=== PATIENT | female | born 1995 | race Caucasian/White ===

== ENCOUNTER 2024-12-09 10:51 | Outpatient (AMB) | payer OTHER, SELFPAY ==
--- NOTE | 2024-12-09 10:56 | MHC.OFFWIV ---
Intake Vital Signs 12/09/24 11:01 Height 5 ft Weight 228 lb BMI 44.5 BP 120/70 Blood Pressure Location Lt brachial Position Sitting Pulse 120 H Pulse Source Pulse Oximeter Temp 98.9 F Temp Source Oral Pulse Oximetry (%) 96 Intake Visit Reasons: [employer] flu symptoms Patient Tobacco Use Status: Never used Tobacco Allergies Seasonal Allergies Allergy (Mild, Verified 12/09/24 11:03) Sneezing Do you need a note to return to daycare/school/sports/work: Yes HPI HPI Comments History of Present Illness Details 29 y/o female patient who presents to the walk in clinic with c/o URI symptoms since yesterday. Reports coughing, chest/nasal congestion, body aches, fevers and headaches. Recent exposure to Flu from a coworker. [facility] Medical History (Updated 12/09/24 @ 11:12 by Amy Austin NP) Acute respiratory disease Social History Patient Tobacco Use Status: Never used Tobacco Review of Systems Const All systems reviewed & are unremarkable except as noted in HPI and below Physical Exam Vital Signs: Last Vital Signs Temp 98.9 F 12/09/24 11:01 Pulse 120 H 12/09/24 11:01 BP 120/70 12/09/24 11:01 Pulse Ox 96 12/09/24 11:01 BMI result Body Mass Index 44.5 Const General: cooperative and no acute distress Nutritional Appearance: obese morbidly obese Orientation/consciousness: patient oriented x3 HEENT Head: Yes normocephalic Ears: external ears normal and TM abnormal with fluid behind the TM bilateral General nose exam: Normal external nose present and Nasal discharge present Face and sinus: Yes normal facial exam and Yes sinus tenderness Mouth: moist mucous membranes Throat: Yes uvula midline and Yes postnasal drainage Resp Effort & Inspection: normal respiratory effort and able to speak in complete sentences Auscultation: clear to auscultation bilaterally, no crackles, no rales, no rhonchi and no wheezes Cardio Heart sounds: S1 normal heart sound present and S2 normal heart sound present Neuro General: patient oriented x3 Assessment & Plan Assessment & Plan (1) Acute respiratory disease: Code(s): J06.9 - Acute upper respiratory infection, unspecified Plan: Ordered SARs OTC cough/flu remedies Ordered Tamiflu (Hold for SARs results) Rest and hydrate with warm fluids. Acetaminophen for pain relief. Orders: Orders SARS-CoV2/FLU/RSV Today J06.9 - Acute upper respiratory infection, unspecified Medications: New benzonatate 200 mg (2 x 100 mg) PO TID 90 caps 0RF cough J06.9 - Acute upper respiratory infection, unspecified oseltamivir (Tamiflu) 75 mg PO BID 5 days 10 caps 0RF J06.9 - Acute upper respiratory infection, unspecified Coding Level of Care Code New Pt Level 4 (79545) Diagnoses Acute respiratory disease J06.9 Time Spent (min) 20
[2024-12-09 11:01] VITALS: BP 120/70; PULSE 120; TEMP 37.2; O2SAT 96; BMI 44.5
--- OUTSIDE RECORDS SUMMARY | 2024-12-09 13:08 | XMS_ITS ---
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 SECA done. Previous weight was 230. Today the patient weight is 230. She has no complaints MEDICATIONS Medication SIG (Take, Route, Frequency, Duration) Notes Start Date End Date Status Semaglutide(0.25 or 0.5MG/DOS) 2 MG/3ML as directed Subcutaneous Active VITAL SIGNS Blood pressure systolic 140 mm Hg 12/02/19 25 Blood pressure diastolic 68 mm Hg 025 Heart Rate 55 /min 12/02/2024 Height 60 in 12/02/2024 Weight 230 lbs 12/02/2024 BMI 44.91 kg/m2 12/02/2024 Oximetry 99 % 12/02/2024 Encounters Encounter Location Date Provider Diagnosis [address] [address] 12/02/2024 BRANNON TELLEZ Morbid obesity E66.0 1 ; BMI 45.0-49.9, adult Z68.42 and Nutritional counseling Z71.3 ASSESSMENTS Encounter Date Diagnosis Assessment Notes Treatment Notes Treatment Clinical Notes Section Notes 12/02/2024 Morbid obesity (ICD-10 - E66.01) Lila is a 29-year-old female with PMH of asthma, seasonal allergies that presents for weight management follow-up. Reviewed [facility] holistic and medical approach to weight loss with emphasis on lifestyle modification. 12/02/2024: Weight: 230, BMI: 44.9. SECA reviewed -unchanged from last visit. Due to financial constrictions, patient would like to continue compounded semaglutide 0.5 mg SC weekly. She is hopeful that with insurance change at work, Joyce may be covered in the future. In the interim she is encouraged to continue to make health-conscious diet choices and prioritize protein intake. Discussed the importance of establishing regular physical activity routine. First goal is to walk 30 minutes 3 times weekly. 11/03/2024: Weight: 230, BMI: 44.9. Patient had 8 pounds, congratulated on progress. SECA reviewed, reveals 6 pounds of fat loss and maintenance of muscle mass. Once settled into her new home the patient is encouraged to implement regular walking/exercise routine. Discussed the importance of practicing portion control and being conscientious of calorie intake. Patient encouraged to increase water intake and consider trying sugar/calorie free flavored beverage as alternative to juice. Plan to continue compounded semaglutide at 0.5 SC weekly and follow up in 1 month. 09/24/2024: Weight: 238.5, BMI 46.6. SECA reviewed, reveals 2 pounds of fat gain with maintenance of muscle mass. Patient encouraged to continue participating in HIT workouts 3 times weekly. Discussed the importance of portion control and continued healthy eating habits. Reviewed the importance of adequate nutrition in the setting of GLP-1 induced appetite suppression. Patient is reminded that under eating can be just as harmful as overeating and is encouraged to keep a food diary x 1 week to better evaluate current diet. Plan to continue semaglutide 0.25 mg today with plan to increase to 0.5 mg dose at next visit. 08/25/2024: Weight: 236, BMI: 46. SECA reviewed, reveals 2 pounds of fat loss with 2 pounds of muscle gain. Patient provided reassurance, although number on scale has not changed, composition has improved. The patient is encouraged to continue prioritizing protein intake, physical activity, and water intake. Plan to start compounded semaglutide in office today, 0.25 mg administered. Consider resubmitting to insurance [place] to [place] [id number]. Labs drawn 08/24/2024 reveal elevated TG at 201 and LDL at 111 patient is educated that lifestyle changes including increasing physical activity and dietary changes can aid in decreasing cholesterol levels. Recommending a diet rich in fruits, vegetables, fiber, and healthy fats such as those found in fish and nuts. Limit sugar, processed foods, fried foods, alcohol, red meat, and unhealthy fats such as trans fats and saturated fat. Consider fish oil supplement. CMP reveals isolated elevated ALT at 91. Patient denies regular use of hepatotoxic agents such as Tylenol or alcohol. Patient encouraged to follow-up with PCP for repeat labs. 07/07/2024: Weight: 235, BMI: 45.89. Reviewed SECA/goals for implementing sustainable lifestyle changes. Patient is encouraged to increase physical activity, goal 8-10k steps/day. Also discussed the importance of strength training with proper safety/body mechanics for maintenance of muscle mass/bone health. Patient encouraged to drink 60-80oz water/day. Reviewed nutrition, recommending food diary x 1 week to ensure adequate caloric/protein intake. Goal of 100g protein/day. Reviewed risks, benefits, and side effects of weight management medications including phentermine, Topamax, Contrave, metformin, and GLP-1 agonist.Patient interested in GLP-1 agonist Zepbound. Rx for Zepbound 2.5 mg SC weekly sent to pharmacy. Denies personal/family history of medullary thyroid cancer/M EN syndrome. Reviewed expectations for PA process/insurance coverage. Patient would like to try implementing lifestyle changes in addition to the MICC injection with plan to follow-up in 1 month. All questions answered to the patient's satisfaction. Patient demonstrates understanding of diagnosis and treatments discussed. Follow-up in 4-weeks, sooner should any questions/concerns arise. Case discussed with collaborating physician Beata De León who has reviewed the assessment/plan. Chart, medications, labs, and vital signs reviewed. Dictation completed with the use of [employer] voice recognition software, prone to medical misidentifications and grammatical errors. All errors are unintentional. Although the practitioner does try to identify and correct errors, some may be present. Please do not hesitate to contact the practitioner for clarification. Total time spent was 30 minutes with >50% on coordination of care and patient education. 12/02/2024 BMI 45.0-49.9, adult (ICD-10 - Z68.42) Lila is a 29-year-old female with PMH of asthma, seasonal allergies that presents for weight management follow-up. Reviewed [facility] holistic and medical approach to weight loss with emphasis on lifestyle modification. 12/02/2024: Weight: 230, BMI: 44.9. SECA reviewed -unchanged from last visit. Due to financial constrictions, patient would like to continue compounded semaglutide 0.5 mg SC weekly. She is hopeful that with insurance change at work, Joyce may be covered in the future. In the interim she is encouraged to continue to make health-conscious diet choices and prioritize protein intake. Discussed the importance of establishing regular physical activity routine. First goal is to walk 30 minutes 3 times weekly. 11/03/2024: Weight: 230, BMI: 44.9. Patient had 8 pounds, congratulated on progress. SECA reviewed, reveals 6 pounds of fat loss and maintenance of muscle mass. Once settled into her new home the patient is encouraged to implement regular walking/exercise routine. Discussed the importance of practicing portion control and being conscientious of calorie intake. Patient encouraged to increase water intake and consider trying sugar/calorie free flavored beverage as alternative to juice. Plan to continue compounded semaglutide at 0.5 SC weekly and follow up in 1 month. 09/24/2024: Weight: 238.5, BMI 46.6. SECA reviewed, reveals 2 pounds of fat gain with maintenance of muscle mass. Patient encouraged to continue participating in HIT workouts 3 times weekly. Discussed the importance of portion control and continued healthy eating habits. Reviewed the importance of adequate nutrition in the setting of GLP-1 induced appetite suppression. Patient is reminded that under eating can be just as harmful as overeating and is encouraged to keep a food diary x 1 week to better evaluate current diet. Plan to continue semaglutide 0.25 mg today with plan to increase to 0.5 mg dose at next visit. 08/25/2024: Weight: 236, BMI: 46. SECA reviewed, reveals 2 pounds of fat loss with 2 pounds of muscle gain. Patient provided reassurance, although number on scale has not changed, composition has improved. The patient is encouraged to continue prioritizing protein intake, physical activity, and water intake. Plan to start compounded semaglutide in office today, 0.25 mg administered. Consider resubmitting to insurance [place] to [place] [id number]. Labs drawn 08/24/2024 reveal elevated TG at 201 and LDL at 111 patient is educated that lifestyle changes including increasing physical activity and dietary changes can aid in decreasing cholesterol levels. Recommending a diet rich in fruits, vegetables, fiber, and healthy fats such as those found in fish and nuts. Limit sugar, processed foods, fried foods, alcohol, red meat, and unhealthy fats such as trans fats and saturated fat. Consider fish oil supplement. CMP reveals isolated elevated ALT at 91. Patient denies regular use of hepatotoxic agents such as Tylenol or alcohol. Patient encouraged to follow-up with PCP for repeat labs. 07/07/2024: Weight: 235, BMI: 45.89. Reviewed SECA/goals for implementing sustainable lifestyle changes. Patient is encouraged to increase physical activity, goal 8-10k steps/day. Also discussed the importance of strength training with proper safety/body mechanics for maintenance of muscle mass/bone health. Patient encouraged to drink 60-80oz water/day. Reviewed nutrition, recommending food diary x 1 week to ensure adequate caloric/protein intake. Goal of 100g protein/day. Reviewed risks, benefits, and side effects of weight management medications including phentermine, Topamax, Contrave, metformin, and GLP-1 agonist.Patient interested in GLP-1 agonist Zepbound. Rx for Zepbound 2.5 mg SC weekly sent to pharmacy. Denies personal/family history of medullary thyroid cancer/M EN syndrome. Reviewed expectations for PA process/insurance coverage. Patient would like to try implementing lifestyle changes in addition to the MICC injection with plan to follow-up in 1 month. All questions answered to the patient's satisfaction. Patient demonstrates understanding of diagnosis and treatments discussed. Follow-up in 4-weeks, sooner should any questions/concerns arise. Case discussed with collaborating physician Beata De León who has reviewed the assessment/plan. Chart, medications, labs, and vital signs reviewed. Dictation completed with the use of [employer] voice recognition software, prone to medical misidentifications and grammatical errors. All errors are unintentional. Although the practitioner does try to identify and correct errors, some may be present. Please do not hesitate to contact the practitioner for clarification. Total time spent was 30 minutes with >50% on coordination of care and patient education. 12/02/2024 Nutritional counseling (ICD-10 - Z71.3) Lila is a 29-year-old female with PMH of asthma, seasonal allergies that presents for weight management follow-up. Reviewed [facility] holistic and medical approach to weight loss with emphasis on lifestyle modification. 12/02/2024: Weight: 230, BMI: 44.9. SECA reviewed -unchanged from last visit. Due to financial constrictions, patient would like to continue compounded semaglutide 0.5 mg SC weekly. She is hopeful that with insurance change at work, Joyce may be covered in the future. In the interim she is encouraged to continue to make health-conscious diet choices and prioritize protein intake. Discussed the importance of establishing regular physical activity routine. First goal is to walk 30 minutes 3 times weekly. 11/03/2024: Weight: 230, BMI: 44.9. Patient had 8 pounds, congratulated on progress. SECA reviewed, reveals 6 pounds of fat loss and maintenance of muscle mass. Once settled into her new home the patient is encouraged to implement regular walking/exercise routine. Discussed the importance of practicing portion control and being conscientious of calorie intake. Patient encouraged to increase water intake and consider trying sugar/calorie free flavored beverage as alternative to juice. Plan to continue compounded semaglutide at 0.5 SC weekly and follow up in 1 month. 09/24/2024: Weight: 238.5, BMI 46.6. SECA reviewed, reveals 2 pounds of fat gain with maintenance of muscle mass. Patient encouraged to continue participating in HIT workouts 3 times weekly. Discussed the importance of portion control and continued healthy eating habits. Reviewed the importance of adequate nutrition in the setting of GLP-1 induced appetite suppression. Patient is reminded that under eating can be just as harmful as overeating and is encouraged to keep a food diary x 1 week to better evaluate current diet. Plan to continue semaglutide 0.25 mg today with plan to increase to 0.5 mg dose at next visit. 08/25/2024: Weight: 236, BMI: 46. SECA reviewed, reveals 2 pounds of fat loss with 2 pounds of muscle gain. Patient provided reassurance, although number on scale has not changed, composition has improved. The patient is encouraged to continue prioritizing protein intake, physical activity, and water intake. Plan to start compounded semaglutide in office today, 0.25 mg administered. Consider resubmitting to insurance upon change to health 11. Labs drawn 08/24/2024 reveal elevated TG at 201 and LDL at 111 patient is educated that lifestyle changes including increasing physical activity and dietary changes can aid in decreasing cholesterol levels. Recommending a diet rich in fruits, vegetables, fiber, and healthy fats such as those found in fish and nuts. Limit sugar, processed foods, fried foods, alcohol, red meat, and unhealthy fats such as trans fats and saturated fat. Consider fish oil supplement. CMP reveals isolated elevated ALT at 91. Patient denies regular use of hepatotoxic agents such as Tylenol or alcohol. Patient encouraged to follow-up with PCP for repeat labs. 07/07/2024: Weight: 235, BMI: 45.89. Reviewed SECA/goals for implementing sustainable lifestyle changes. Patient is encouraged to increase physical activity, goal 8-10k steps/day. Also discussed the importance of strength training with proper safety/body mechanics for maintenance of muscle mass/bone health. Patient encouraged to drink 60-80oz water/day. Reviewed nutrition, recommending food diary x 1 week to ensure adequate caloric/protein intake. Goal of 100g protein/day. Reviewed risks, benefits, and side effects of weight management medications including phentermine, Topamax, Contrave, metformin, and GLP-1 agonist.Patient interested in GLP-1 agonist Zepbound. Rx for Zepbound 2.5 mg SC weekly sent to pharmacy. Denies personal/family history of medullary thyroid cancer/M EN syndrome. Reviewed expectations for PA process/insurance coverage. Patient would like to try implementing lifestyle changes in addition to the MICC injection with plan to follow-up in 1 month. All questions answered to the patient's satisfaction. Patient demonstrates understanding of diagnosis and treatments discussed. Follow-up in 4-weeks, sooner should any questions/concerns arise. Case discussed with collaborating physician Beata De León who has reviewed the assessment/plan. Chart, medications, labs, and vital signs reviewed. Dictation completed with the use of [employer] voice recognition software, prone to medical misidentifications and grammatical errors. All errors are unintentional. Although the practitioner does try to identify and correct errors, some may be present. Please do not hesitate to contact the practitioner for clarification. Total time spent was 30 minutes with >50% on coordination of care and patient education. PLAN OF TREATMENT Next Appt Details Provider Name:PRIYANKA GRIFFIN, 12/15/2024 01:45:00 PM, [address], [address], [place], [address], Provider Name:PRIYANKA GRIFFIN, 12/22/2024 01:45:00 PM, [address], [address], [place], [address], Provider Name:PRIYANKA GRIFFIN, 12/29/2024 01:45:00 PM, [address], [place], [address], Provider Name:BRANNON Rodriguez, 01/05/2025 01:45:00 PM, [address], [address], [place], [address], Progress Notes * RICHILilaDOB: [birth year] (29 yo F)Acc No.[id number]:12/02/2024 Patient:??RICHILila Provider:??BRANNON TELLEZ PA-C :1995?Age:29 Y?Sex:Fe male Date:12/02/2024 Address:[address] [place], [place] [id number] Pcp:Светлана Abel Subjective: * Chief Complaints: * ?1. Patient is here for weight management follow up. SECA done. Previous weight was 230. Today the patient weight is 230. She has no complaints. * HPI: ?Constitutional:? Lila is a 29-year-old female with PMH of asthma, seasonal allergies that presents for weight management follow-up. Currently receiving compounded semaglutide 0.5mg SC weekly. Reports moderate appetite suppression. Denies the presence of side effects including abdominal pain, nausea, or vomiting. Reports mild constipation, still moving bowels daily. States eating habits are consistent. Usually eats 2 eggs and sausage or avocado toast for breakfast. 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 Trying to eat dinner earlier. Dinner consists of a protein, veggie, and carb/starch. Prioritizing intake of protein and vegetables - making healthier snack choices u.e. avocado, banana, etc. All settled into new house. Feels physical has been down over the last month. Water intake has increased, averaging 80 ounces/day. * ROS:?All Other Systems:?Review of Systems (ROS)??All others negative except those mentioned in HPI.? * Medical History:??Morbid obe sity, Mild intermittent asthma without complication, Seasonal allergies. * Family History:??Father: ali ve.??Mother: alive, HTN.??Siblings: obesity, HTN, asthma, ADHD, autism.??3 brother(s) , 1 sister(s) . .?? * Social History:?drink socially. * Medications:??Taking Semaglu tide(0.25 or 0.5MG/DOS) 2 MG/3ML Solution Pen- injector as directed Subcutaneous , Medication List reviewed and reconciled with the patient * Allergies:??Seasonal IC: All ergy, Cat Dander: rash - Allergy. Objective: * Vitals:??HR:55/min, BP:140/6 8mm Hg, Wt:230lbs, BMI:44.91Index, Ht: 60 in, Oxygen sat %:99%. * Physical Examination:?General: Age appropriate, well-appearing 29-year-old female in no acute distress, speaking in full sentences without respiratory compromise. Well groomed, well developed. Alert, interactive. ?Skin: Warm, dry and intact. No lesions/rashes/erythema. ?HEENT: Normocephalic/atraumatic. ?CV: RRR. ?Lungs: Clear to auscultation bilaterally. ?Neuro: CN II-XII grossly intact. Steady gait with non-assisted ambulation observed. ?Psych: Stable mood and affect. Assessment: * Assessment: 1.??Morbid obesity - E66.01 (Primary)??2.??BMI 45.0-49.9, adult - Z68.42??3.??Nutritional counseling - Z71.3?? Lila is a 29-year-old female with PMH of asthma, seasonal allergies that presents for weight management follow-up. Reviewed [facility] holistic and medical approach to weight loss with emphasis on lifestyle modification. 12/02/2024: Weight: 230, BMI: 44.9. SECA reviewed -unchanged from last visit. Due to financial constrictions, patient would like to continue compounded semaglutide 0.5 mg SC weekly. She is hopeful that with insurance change at work, Joyce may be covered in the future. In the interim she is encouraged to continue to make health- conscious diet choices and prioritize protein intake. Discussed the importance of establishing regular physical activity routine. First goal is to walk 30 minutes 3 times weekly. 11/03/2024: Weight: 230, BMI: 44.9. Patient had 8 pounds, congratulated on progress. SECA reviewed, reveals 6 pounds of fat loss and maintenance of muscle mass. Once settled into her new home the patient is encouraged to implement regular walking/exercise routine. Discussed the importance of practicing portion control and being conscientious of calorie intake. Patient encouraged to increase water intake and consider trying sugar/calorie free flavored beverage as alternative to juice. Plan to continue compounded semaglutide at 0.5 SC weekly and follow up in 1 month. 09/24/2024: Weight: 238.5, BMI 46.6. SECA reviewed, reveals 2 pounds of fat gain with maintenance of muscle mass. Patient encouraged to continue participating in HIT workouts 3 times weekly. Discussed the importance of portion control and continued healthy eating habits. Reviewed the importance of adequate nutrition in the setting of GLP-1 induced appetite suppression. Patient is reminded that under eating can be just as harmful as overeating and is encouraged to keep a food diary x 1 week to better evaluate current diet. Plan to continue semaglutide 0.25 mg today with plan to increase to 0.5 mg dose at next visit. 08/25/2024: Weight: 236, BMI: 46. SECA reviewed, reveals 2 pounds of fat loss with 2 pounds of muscle gain. Patient provided reassurance, although number on scale has not changed, composition has improved. The patient is encouraged to continue prioritizing protein intake, physical activity, and water intake. Plan to start compounded semaglutide in office today, 0.25 mg administered. Consider resubmitting to insurance upon change to health . Labs drawn 08/24/2024 reveal elevated TG at 201 and LDL at 111 patient is educated that lifestyle changes including increasing physical activity and dietary changes can aid in decreasing cholesterol levels. Recommending a diet rich in fruits, vegetables, fiber, and healthy fats such as those found in fish and nuts. Limit sugar, processed foods, fried foods, alcohol, red meat, and unhealthy fats such as trans fats and saturated fat. Consider fish oil supplement. CMP reveals isolated elevated ALT at 91. Patient denies regular use of hepatotoxic agents such as Tylenol or alcohol. Patient encouraged to follow-up with PCP for repeat labs. 07/07/2024: Weight: 235, BMI: 45.89. Reviewed SECA/goals for implementing sustainable lifestyle changes. Patient is encouraged to increase physical activity, goal 8- 10k steps/day. Also discussed the importance of strength training with proper safety/body mechanics for maintenance of muscle mass/bone health. Patient encouraged to drink 60-80oz water/day. Reviewed nutrition, recommending food diary x 1 week to ensure adequate caloric/protein intake. Goal of 100g protein/day. Reviewed risks, benefits, and side effects of weight management medications including phentermine, Topamax, Contrave, metformin, and GLP-1 agonist.Patient interested in GLP-1 agonist Zepbound. Rx for Zepbound 2.5 mg SC weekly sent to pharmacy. Denies personal/family history of medullary thyroid cancer/M EN syndrome. Reviewed expectations for PA process/insurance coverage. Patient would like to try implementing lifestyle changes in addition to the MICC injection with plan to follow-up in 1 month. All questions answered to the patient's satisfaction. Patient demonstrates understanding of diagnosis and treatments discussed. Follow-up in 4-weeks, sooner should any questions/concerns arise. Case discussed with collaborating physician Beata De León who has reviewed the assessment/plan. Chart, medications, labs, and vital signs reviewed. Dictation completed with the use of [employer] voice recognition software, prone to medical misidentifications and grammatical errors. All errors are unintentional. Although the practitioner does try to identify and correct errors, some may be present. Please do not hesitate to contact the practitioner for clarification. Total time spent was 30 minutes with >50% on coordination of care and patient education. Plan: * Treatment: * Procedure Codes:??54510 P/M BUCKLE SEWER, INDIV 15 MIN * Images: Billing Information: * Visit Code:?? 42392 Office Visit, Est Pt., Level 4. Modifiers: 25, SA * Procedure Codes:?? 47044 P/M BUCKLE SEWER, INDIV 15 MIN. * Sign off status: Completed true * Provider:??BRANNON TELLEZ PA-C Date:?? 12/02/2024 History and Physical Notes * HPI (History of Present Illness) Category Sub-Category Detail Notes Category Not es Constitutional Lila is a 29- year-old female with PMH of asthma, seasonal allergies that presents for weight management follow-up. Currently receiving compounded semaglutide 0.5mg SC weekly. Reports moderate appetite suppression. Denies the presence of side effects including abdominal pain, nausea, or vomiting. Reports mild constipation, still moving bowels daily. States eating habits are consistent. Usually eats 2 eggs and sausage or avocado toast for breakfast. 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 Trying to eat dinner earlier. Dinner consists of a protein, veggie, and carb/starch. Prioritizing intake of protein and vegetables - making healthier snack choices u.e. avocado, banana, etc. All settled into new house. Feels physical has been down over the last month. Water intake has increased, averaging 80 ounces/day. Physical Examination Category Sub-Category Detail Notes Section Note s General: Age appropriate, well-appearing 29-year-old female in no acute distress, speaking in full sentences without respiratory compromise. Well groomed, well developed. Alert, interactive. Skin: Warm, dry and intact. No lesions/rashes/erythema. HEENT: Normocephalic/atraumatic. CV: RRR. Lungs: Clear to auscultation bilaterally. Neuro: CN II-XII grossly intact. Steady gait with non-assisted ambulation observed. Psych: Stable mood and affect.
--- OUTSIDE RECORDS SUMMARY | 2024-12-09 13:08 | XMS_ITS | Patient Health Record ---
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 Phone AbelСветлана Primary Care Provider BRANNON Vela Unavailable [phone] PRIYANKA GRIFFIN Unavailable [phone] ALLERGIES Allergen (clinical drug ingredient) Drug/Non Drug Allergy documented on EMR Reaction Allergy Type Onset Date Status Seasonal IC Unknown Drug Allergy Activ e Cat dander Cat Dander rash Allergy Active RESULTS Component Value Reference Range Notes Hemoglobin [id number] Reviewed date:08/25/2024 07:49:33 AM Interpretation: Performing Lab:[facility], [address] [facility], Phone - [phone], Director - MDJodry Notes/Report: Hemoglobin A1c 5.4 4.8-5.6 % . Prediabetes: 5.7 - 6.4 Diabetes: >6.4 Glycemic control for adults with diabetes: <7.0 CBC With Differential/Platel et-[id number] Reviewed date:08/25/2024 07:50:06 AM Interpretation: Performing Lab:[facility], [address] [facility], Phone - [phone], Director - MDJodry Notes/Report: WBC 5.1 3.4-10.8 x10E3/uL Effective September 06, 2024 profile [id number] WBC will be made non-orderable as a stand-alone order code. RBC 4.60 3.77-5.28 x10E6/uL Hemoglobin 13.8 11.1-15.9 g/dL Hematocrit 42.0 34.0-46.6 % MCV 91 79-97 fL MCH 30.0 26.6-33.0 pg MCHC 32.9 31.5-35.7 g/dL RDW 14.6 11.7-15.4 % Platelets 209 150-450 x10E3/uL Neutrophils 51 Not Estab. % Lymphs 41 Not Estab. % Monocytes 6 Not Estab. % Eos 2 Not Estab. % Basos 0 Not Estab. % Immature Cells Neutrophils (Absolute) 2.5 1.4-7.0 x10E3/uL Lymphs (Absolute) 2.1 0.7-3.1 x10E3/uL Monocytes(Absolute) 0.3 0.1-0.9 x10E3/uL Eos (Absolute) 0.1 0.0-0.4 x10E3/uL Baso (Absolute) 0.0 0.0-0.2 x10E3/uL Immature Granulocytes 0 Not Estab. % Immature Grans (Abs) 0.0 0.0-0.1 x10E3/uL NR Hematology Comments: Lipid Panel-[id number] Reviewed date:08/25/2024 07:49:38 AM Interpretation: Performing Lab:[facility], [address] [facility], Phone - [phone], Director - MDJodry Notes/Report: Cholesterol, Total 198 100-199 mg/dL Triglycerides 201 0-149 mg/dL HDL Cholesterol 52 >39 mg/dL VLDL Cholesterol Zia 35 5-40 mg/dL LDL Chol Calc ([facility]) 111 0-99 mg/dL LDL Calc Comment: Comp. Metabolic Panel ([id number] Reviewed date:08/25/2024 07:49:57 AM Interpretation: Performing Lab:[facility], [address] [facility], [place], Phone - [phone], Director - MDJoy Notes/Report: Glucose 95 70-99 mg/dL BUN 10 6-20 mg/dL Creatinine 0.57 0.57-1.00 mg/dL eGFR 127 >59 mL/min/1.73 BUN/Creatinine Ratio 18 9-23 Sodium 141 134-144 mmol/L Potassium 4.3 3.5-5.2 mmol/L Chloride 106 96-106 mmol/L Carbon Dioxide, Total 20 20-29 mmol/L Calcium 8.8 8.7-10.2 mg/dL Protein, Total 6.5 6.0-8.5 g/dL Albumin 4.1 4.0-5.0 g/dL Globulin, Total 2.4 1.5-4.5 g/dL Bilirubin, Total 0.4 0.0-1.2 mg/dL Alkaline Phosphatase 105 44-121 IU/L AST (SGOT) 31 0-40 IU/L ALT (SGPT) 91 0-32 IU/L TSH Rfx on Abnormal to Free [id number] Reviewed date:08/25/2024 07:49:28 AM Interpretation: Performing Lab:[facility] [place], [address], [place], Phone - [phone], Director - Fredrick Notes/Report: TSH 1.460 0.450-4.500 uIU/mL REASON FOR REFERRAL No Information MEDICATIONS Medication SIG (Take, Route, Frequency, Duration) Notes Start Date End Date Status Semaglutide(0.25 or 0.5MG/DOS) 2 MG/3ML as directed Subcutaneous Active PROBLEMS Problem Type ICD Code Onset Dates Problem Status W/U Status Risk SNOMED Code Notes Problem Morbid obesity (E66.01) Active confirmed 085137143 Problem Seasonal allergies (J30.2) Active confirmed 517375258 Problem Mild intermittent asthma without complication (J45.20) Active confirmed 531585807 Problem BMI 45.0-49.9, adult (Z68.42) Active confirmed 843414587 Problem Nutritional counseling (Z71.3) Active confirmed 897244681 VITAL SIGNS Heart Rate 55 /min 12/02/2024 Oximetry 99 % 12/02/2024 Blood pressure diastolic 68 mm Hg 12/02/2024 Height 60 in 12/02/2024 Blood pressure systolic 140 mm Hg 12/02/2024 Weight 230 lbs 12/02/2024 BMI 44.91 kg/m2 12/02/2024 Encounters Encounter Location Date Provider Diagnosis [address] [place] [address] 08/11/[address] [place] [address] 09/01/2024 [facility] [address] [place] [address] 09/08/[address] [facility] [address] [place] [address] 09/15/2024 [facility] [address] [place] [address] 09/30/[address] [place] [address] 10/07/[address] [place] [address] 10/13/[address] [place] [address] 10/20/[address] [place] [address] 10/27/[address] [place] [address] 11/10/[address] [place] [address] 11/17/[address] [place] [address] 11/24/[address] [place] [address] 12/08/2024 PRIYANKA GRIFFIN [address] [place] [address] 07/07/2024 [facility] Morbid obesity E66.0 1 ; BMI 45.0-49.9, adult Z68.42 ; Mild intermittent asthma without complication J45.20 ; Seasonal allergies J30.2 and Nutritional counseling Z71.3 [address] [place] [address] 08/25/2024 [facility] Morbid obesity E66.0 1 ; BMI 45.0-49.9, adult Z68.42 ; Mild intermittent asthma without complication J45.20 ; Seasonal allergies J30.2 and Nutritional counseling Z71.3 [address] [place] 09/24/2024 [facility] Morbid obesity E66.0 1 ; BMI 45.0-49.9, adult Z68.42 ; Mild intermittent asthma without complication J45.20 ; Seasonal allergies J30.2 and Nutritional counseling Z71.3 [address] [place] [address] 11/03/2024 BRANNON TELLEZ Morbid obesity E66.0 1 ; BMI 45.0-49.9, adult Z68.42 and Nutritional counseling Z71.3 [address] [facility] [address] [place] [address] 12/02/2024 BRANNON TELLEZ Morbid obesity E66.0 1 ; BMI 45.0-49.9, adult Z68.42 and Nutritional counseling Z71.3 [facility] [address] [facility] [address] [place] [address] 08/19/2024 BRANNON TELLEZ [facility] [address] 07/07/2024 BRANNON TELLEZ ASSESSMENTS Encounter Date Diagnosis Assessment Notes Treatment Notes Treatment Clinical Notes Section Notes 07/07/2024 Morbid obesity (ICD-10 - E66.01) Patient was reassured and welcomed to the practice. Discussed [facility] holistic and medical approach to weight loss with emphasis on lifestyle modification. Patient is educated that a healthy lifestyle aids in combating obesity as well as reducing the risk of developing obesity-related medical complications including but not limited to diabetes and cardiovascular disease. Detailed education provided about taking steps to initiate sustainable lifestyle changes including incorporating regular physical activity, making healthy diet choices, and prioritizing mental health. Information provided about literature including The Food Rules by Kevin Taylor and Eat Fat Get Lean by Dr Denis García. Handouts including lifestyle checklist, protein content of food, low calorie snacks, and cholesterol information sheet provided. Diagnostic testing/ SECA scale offered. Discussed the importance of regular SECA scale measurements to ensure healthy weight loss. 07/07/2024: Weight: 235, BMI: 45.89. Reviewed SECA/goals [...] injection with plan to follow-up in 1 month.After consultation and careful review of medical history, this patient would benefit from Zepbound based off of the following criteria met: Patient is over the age of 18 with a BMI of 45.89. Patient has trialed other methods of weight loss including improving diet and exercise without success. This medication is prescribed by or in consultation with a board-certified obesity and weight management physician (Dr. Pavan De León or Dr. Marcelo De León). All questions answered to the patient's satisfaction. Patient demonstrates understanding of diagnosis and treatments discussed. Follow-up in 4-weeks, sooner should any questions/concerns arise. Case discussed with collaborating physician Beata De León who has reviewed the assessment/plan. Chart, medications, labs, and vital signs reviewed. Dictation completed with the use of [employer] voice recognition software, prone to medical misidentifications and grammatical errors. All errors are unintentional. Although the practitioner does try to identify and correct errors, some may be present. Please do not hesitate to contact the practitioner for clarification. 07/07/2024 BMI 45.0-49.9, adult (ICD-10 - Z68.42) Patient was reassured and welcomed to the practice. Discussed [facility] holistic and medical approach to weight loss with emphasis on lifestyle modification. Patient is educated that a healthy lifestyle aids in combating obesity as well as reducing the risk of developing obesity-related medical complications including but not limited to diabetes and cardiovascular disease. Detailed education provided about taking steps to initiate sustainable lifestyle changes including incorporating regular physical activity, making healthy diet choices, and prioritizing mental health. Information provided about literature including The Food Rules by Kevin Taylor and Eat Fat Get Lean by Dr Denis García. Handouts including lifestyle checklist, protein content of food, low calorie snacks, and cholesterol information sheet provided. Diagnostic testing/ SECA scale offered. Discussed the importance of regular SECA scale measurements to ensure healthy weight loss. 07/07/2024: Weight: 235, BMI: 45.89. Reviewed SECA/goals [...] injection with plan to follow-up in 1 month.After consultation and careful review of medical history, this patient would benefit from Zepbound based off of the following criteria met: Patient is over the age of 18 with a BMI of 45.89. Patient has trialed other methods of weight loss including improving diet and exercise without success. This medication is prescribed by or in consultation with a board-certified obesity and weight management physician (Dr. Pavan De León or Dr. Marcelo De León). All questions answered to the patient's satisfaction. Patient demonstrates understanding of diagnosis and treatments discussed. Follow-up in 4-weeks, sooner should any questions/concerns arise. Case discussed with collaborating physician Beata De León who has reviewed the assessment/plan. Chart, medications, labs, and vital signs reviewed. Dictation completed with the use of [employer] voice recognition software, prone to medical misidentifications and grammatical errors. All errors are unintentional. Although the practitioner does try to identify and correct errors, some may be present. Please do not hesitate to contact the practitioner for clarification. 08/25/2024 Morbid obesity (ICD-10 - E66.01) Reviewed [facility] holistic and medical approach to weight loss with emphasis on lifestyle modification. 08/25/2024: Weight: 236, BMI: 46. SECA reviewed, [...] reviewed. Dictation completed with the use of [employer] voice recognition software, prone to medical misidentifications and grammatical errors. All errors are unintentional. Although the practitioner does try to identify and correct errors, some may be present. Please do not hesitate to contact the practitioner for clarification. Total time spent was 25 minutes with >50% on coordination of care and patient education. 09/24/2024 Morbid obesity (ICD-10 - E66.01) Lila is a 28-year-old female with PMH of asthma, seasonal allergies that presents for weight management follow-up. Reviewed [facility] holistic and medical approach to weight loss with emphasis on lifestyle modification. 09/24/2024: Weight: 238.5, BMI 46.6. SECA reviewed, [...] Consider resubmitting to insurance upon change to [place] [id number]. Labs drawn 08/24/2024 reveal elevated TG at [...] reviewed. Dictation completed with the use of [employer] voice recognition software, prone to medical misidentifications and grammatical errors. All errors are unintentional. Although the practitioner does try to identify and correct errors, some may be present. Please do not hesitate to contact the practitioner for clarification. Total time spent was 30 minutes with >50% on coordination of care and patient education. 11/03/2024 Morbid obesity (ICD-10 - E66.01) Lila is a 29-year-old female with PMH of asthma, seasonal allergies that presents for weight management follow-up. Reviewed [facility] holistic and medical approach to weight loss with emphasis on lifestyle modification. 11/03/2024: Weight: 230, BMI: 44.9. Patient had [...] Consider resubmitting to insurance upon change to [place] [id number]. Labs drawn 08/24/2024 reveal elevated TG at [...] 2.5 mg SC weekly sent to pharmacy. Obedies personal/family history of medullary thyroid cancer/M EN [...] reviewed. Dictation completed with the use of [employer] voice recognition software, prone to medical misidentifications and grammatical errors. All errors are unintentional. Although the practitioner does try to identify and correct errors, some may be present. Please do not hesitate to contact the practitioner for clarification. Total time spent was 30 minutes with >50% on coordination of care and patient education. 11/03/2024 BMI 45.0-49.9, adult (ICD-10 - Z68.42) Lila is a 29-year-old female with PMH of asthma, seasonal allergies that presents for weight management follow-up. Reviewed [facility] holistic and medical approach to weight loss with emphasis on lifestyle modification. 11/03/2024: Weight: 230, BMI: 44.9. Patient had [...] Consider resubmitting to insurance upon change to [place] [id number]. Labs drawn 08/24/2024 reveal elevated TG at [...] reviewed. Dictation completed with the use of [employer] voice recognition software, prone to medical misidentifications and grammatical errors. All errors are unintentional. Although the practitioner does try to identify and correct errors, some may be present. Please do not hesitate to contact the practitioner for clarification. Total time spent was 30 minutes with >50% on coordination of care and patient education. 12/02/2024 Morbid obesity (ICD-10 - E66.01) Lila [...] hopeful that with insurance change at work, [employer] may be covered in the future. In [...] Consider resubmitting to insurance upon change to [place] [id number]. Labs drawn 08/24/2024 reveal elevated TG at [...] reviewed. Dictation completed with the use of [employer] voice recognition software, prone to medical misidentifications [...] hopeful that with insurance change at work, [employer] may be covered in the future. In [...] Consider resubmitting to insurance upon change to [place] [id number]. Labs drawn 08/24/2024 reveal elevated TG at [...] reviewed. Dictation completed with the use of [employer] voice recognition software, prone to medical misidentifications and grammatical errors. All errors are unintentional. Although the practitioner does try to identify and correct errors, some may be present. Please do not hesitate to contact the practitioner for clarification. Total time spent was 30 minutes with >50% on coordination of care and patient education. 11/03/2024 Nutritional counseling (ICD-10 - Z71.3) Lila is a 29-year-old female with PMH of asthma, seasonal allergies that presents for weight management follow-up. Reviewed [facility] holistic and medical approach to weight loss with emphasis on lifestyle modification. 11/03/2024: Weight: 230, BMI: 44.9. Patient had [...] reviewed. Dictation completed with the use of [employer] voice recognition software, prone to medical misidentifications and grammatical errors. All errors are unintentional. Although the practitioner does try to identify and correct errors, some may be present. Please do not hesitate to contact the practitioner for clarification. Total time spent was 30 minutes with >50% on coordination of care and patient education. 09/24/2024 BMI 45.0-49.9, adult (ICD-10 - Z68.42) Lila is a 28-year-old female with PMH of asthma, seasonal allergies that presents for weight management follow-up. Reviewed [facility] holistic and medical approach to weight loss with emphasis on lifestyle modification. 09/24/2024: Weight: 238.5, BMI 46.6. SECA reviewed, [...] Consider resubmitting to insurance upon change [place] [id number]. Labs drawn 08/24/2024 reveal elevated TG at [...] reviewed. Dictation completed with the use of [employer] voice recognition software, prone to medical misidentifications and grammatical errors. All errors are unintentional. Although the practitioner does try to identify and correct errors, some may be present. Please do not hesitate to contact the practitioner for clarification. Total time spent was 30 minutes with >50% on coordination of care and patient education. 08/25/2024 BMI 45.0-49.9, adult (ICD-10 - Z68.42) Reviewed [facility] holistic and medical approach to weight loss with emphasis on lifestyle modification. 08/25/2024: Weight: 236, BMI: 46. SECA reviewed, [...] Consider resubmitting to insurance upon change to [place] [id number]. Labs drawn 08/24/2024 reveal elevated TG at [...] reviewed. Dictation completed with the use of [employer] voice recognition software, prone to medical misidentifications and grammatical errors. All errors are unintentional. Although the practitioner does try to identify and correct errors, some may be present. Please do not hesitate to contact the practitioner for clarification. Total time spent was 25 minutes with >50% on coordination of care and patient education. 07/07/2024 Mild intermittent asthma without complication (ICD-10 - J45.20) Patient was reassured and welcomed to the practice. Discussed [facility] holistic and medical approach to weight loss with emphasis on lifestyle modification. Patient is educated that a healthy lifestyle aids in combating obesity as well as reducing the risk of developing obesity-related medical complications including but not limited to diabetes and cardiovascular disease. Detailed education provided about taking steps to initiate sustainable lifestyle changes including incorporating regular physical activity, making healthy diet choices, and prioritizing mental health. Information provided about literature including The Food Rules by Kevin Taylor and Eat Fat Get Lean by Dr Denis García. Handouts including lifestyle checklist, protein content of food, low calorie snacks, and cholesterol information sheet provided. Diagnostic testing/ SECA scale offered. Discussed the importance of regular SECA scale measurements to ensure healthy weight loss. 07/07/2024: Weight: 235, BMI: 45.89. Reviewed SECA/goals [...] injection with plan to follow-up in 1 month.After consultation and careful review of medical history, this patient would benefit from Zepbound based off of the following criteria met: Patient is over the age of 18 with a BMI of 45.89. Patient has trialed other methods of weight loss including improving diet and exercise without success. This medication is prescribed by or in consultation with a board-certified obesity and weight management physician (Dr. Pavan De León or Dr. Marcelo De León). All questions answered to the patient's satisfaction. Patient demonstrates understanding of diagnosis and treatments discussed. Follow-up in 4-weeks, sooner should any questions/concerns arise. Case discussed with collaborating physician Beata De León who has reviewed the assessment/plan. Chart, medications, labs, and vital signs reviewed. Dictation completed with the use of [employer] voice recognition software, prone to medical misidentifications and grammatical errors. All errors are unintentional. Although the practitioner does try to identify and correct errors, some may be present. Please do not hesitate to contact the practitioner for clarification. 08/25/2024 Mild intermittent asthma without complication (ICD-10 - J45.20) Reviewed [facility] holistic and medical approach to weight loss with emphasis on lifestyle modification. 08/25/2024: Weight: 236, BMI: 46. SECA reviewed, [...] Consider resubmitting to insurance upon change to [place] [id number]. Labs drawn 08/24/2024 reveal elevated TG at [...] reviewed. Dictation completed with the use of [employer] voice recognition software, prone to medical misidentifications and grammatical errors. All errors are unintentional. Although the practitioner does try to identify and correct errors, some may be present. Please do not hesitate to contact the practitioner for clarification. Total time spent was 25 minutes with >50% on coordination of care and patient education. 07/07/2024 Seasonal allergies (ICD-10 - J30.2) Patient was reassured and welcomed to the practice. Discussed [facility] holistic and medical approach to weight loss with emphasis on lifestyle modification. Patient is educated that a healthy lifestyle aids in combating obesity as well as reducing the risk of developing obesity-related medical complications including but not limited to diabetes and cardiovascular disease. Detailed education provided about taking steps to initiate sustainable lifestyle changes including incorporating regular physical activity, making healthy diet choices, and prioritizing mental health. Information provided about literature including The Food Rules by Kevin Taylor and Eat Fat Get Lean by Dr Denis García. Handouts including lifestyle checklist, protein content of food, low calorie snacks, and cholesterol information sheet provided. Diagnostic testing/ SECA scale offered. Discussed the importance of regular SECA scale measurements to ensure healthy weight loss. 07/07/2024: Weight: 235, BMI: 45.89. Reviewed SECA/goals [...] injection with plan to follow-up in 1 month.After consultation and careful review of medical history, this patient would benefit from Zepbound based off of the following criteria met: Patient is over the age of 18 with a BMI of 45.89. Patient has trialed other methods of weight loss including improving diet and exercise without success. This medication is prescribed by or in consultation with a board-certified obesity and weight management physician (Dr. Pavan De León or Dr. Marcelo De León). All questions answered to the patient's satisfaction. Patient demonstrates understanding of diagnosis and treatments discussed. Follow-up in 4-weeks, sooner should any questions/concerns arise. Case discussed with collaborating physician Beata De León who has reviewed the assessment/plan. Chart, medications, labs, and vital signs reviewed. Dictation completed with the use of [employer] voice recognition software, prone to medical misidentifications and grammatical errors. All errors are unintentional. Although the practitioner does try to identify and correct errors, some may be present. Please do not hesitate to contact the practitioner for clarification. 12/02/2024 Nutritional counseling (ICD-10 - Z71.3) Lila [...] hopeful that with insurance change at work, [employer] may be covered in the future. In [...] Consider resubmitting to insurance upon change to [place] [id number]. Labs drawn 08/24/2024 reveal elevated TG at [...] reviewed. Dictation completed with the use of [employer] voice recognition software, prone to medical misidentifications and grammatical errors. All errors are unintentional. Although the practitioner does try to identify and correct errors, some may be present. Please do not hesitate to contact the practitioner for clarification. Total time spent was 30 minutes with >50% on coordination of care and patient education. 09/24/2024 Mild intermittent asthma without complication (ICD-10 - J45.20) Lila is a 28-year-old female with PMH of asthma, seasonal allergies that presents for weight management follow-up. Reviewed [facility] holistic and medical approach to weight loss with emphasis on lifestyle modification. 09/24/2024: Weight: 238.5, BMI 46.6. SECA reviewed, [...] Consider resubmitting to insurance upon change to [place] [id number]. Labs drawn 08/24/2024 reveal elevated TG at [...] reviewed. Dictation completed with the use of [employer] voice recognition software, prone to medical misidentifications and grammatical errors. All errors are unintentional. Although the practitioner does try to identify and correct errors, some may be present. Please do not hesitate to contact the practitioner for clarification. Total time spent was 30 minutes with >50% on coordination of care and patient education. 07/07/2024 Nutritional counseling (ICD-10 - Z71.3) Patient was reassured and welcomed to the practice. Discussed [facility] holistic and medical approach to weight loss with emphasis on lifestyle modification. Patient is educated that a healthy lifestyle aids in combating obesity as well as reducing the risk of developing obesity-related medical complications including but not limited to diabetes and cardiovascular disease. Detailed education provided about taking steps to initiate sustainable lifestyle changes including incorporating regular physical activity, making healthy diet choices, and prioritizing mental health. Information provided about literature including The Food Rules by Kevin Taylor and Eat Fat Get Lean by Dr Denis García. Handouts including lifestyle checklist, protein content of food, low calorie snacks, and cholesterol information sheet provided. Diagnostic testing/ SECA scale offered. Discussed the importance of regular SECA scale measurements to ensure healthy weight loss. 07/07/2024: Weight: 235, BMI: 45.89. Reviewed SECA/goals [...] injection with plan to follow-up in 1 month.After consultation and careful review of medical history, this patient would benefit from Zepbound based off of the following criteria met: Patient is over the age of 18 with a BMI of 45.89. Patient has trialed other methods of weight loss including improving diet and exercise without success. This medication is prescribed by or in consultation with a board-certified obesity and weight management physician (Dr. Pavan De León or Dr. Marcelo De León). All questions answered to the patient's satisfaction. Patient demonstrates understanding of diagnosis and treatments discussed. Follow-up in 4-weeks, sooner should any questions/concerns arise. Case discussed with collaborating physician Beata De León who has reviewed the assessment/plan. Chart, medications, labs, and vital signs reviewed. Dictation completed with the use of [employer] voice recognition software, prone to medical misidentifications and grammatical errors. All errors are unintentional. Although the practitioner does try to identify and correct errors, some may be present. Please do not hesitate to contact the practitioner for clarification. 08/25/2024 Seasonal allergies (ICD-10 - J30.2) Reviewed [facility] holistic and medical approach to weight loss with emphasis on lifestyle modification. 08/25/2024: Weight: 236, BMI: 46. SECA reviewed, [...] Consider resubmitting to insurance upon change to [place] [id number]. Labs drawn 08/24/2024 reveal elevated TG at [...] reviewed. Dictation completed with the use of [employer] voice recognition software, prone to medical misidentifications and grammatical errors. All errors are unintentional. Although the practitioner does try to identify and correct errors, some may be present. Please do not hesitate to contact the practitioner for clarification. Total time spent was 25 minutes with >50% on coordination of care and patient education. 09/24/2024 Seasonal allergies (ICD-10 - J30.2) Lila is a 28-year-old female with PMH of asthma, seasonal allergies that presents for weight management follow-up. Reviewed [facility] holistic and medical approach to weight loss with emphasis on lifestyle modification. 09/24/2024: Weight: 238.5, BMI 46.6. SECA reviewed, [...] Consider resubmitting to insurance upon change to [place] [id number]. Labs drawn 08/24/2024 reveal elevated TG at [...] reviewed. Dictation completed with the use of [employer] voice recognition software, prone to medical misidentifications and grammatical errors. All errors are unintentional. Although the practitioner does try to identify and correct errors, some may be present. Please do not hesitate to contact the practitioner for clarification. Total time spent was 30 minutes with >50% on coordination of care and patient education. 08/25/2024 Nutritional counseling (ICD-10 - Z71.3) Reviewed [facility] holistic and medical approach to weight loss with emphasis on lifestyle modification. 08/25/2024: Weight: 236, BMI: 46. SECA reviewed, [...] Consider resubmitting to insurance upon change to [place] [id number]. Labs drawn 08/24/2024 reveal elevated TG at [...] reviewed. Dictation completed with the use of [employer] voice recognition software, prone to medical misidentifications and grammatical errors. All errors are unintentional. Although the practitioner does try to identify and correct errors, some may be present. Please do not hesitate to contact the practitioner for clarification. Total time spent was 25 minutes with >50% on coordination of care and patient education. 09/24/2024 Nutritional counseling (ICD-10 - Z71.3) Lila is a 28-year-old female with PMH of asthma, seasonal allergies that presents for weight management follow-up. Reviewed [facility] holistic and medical approach to weight loss with emphasis on lifestyle modification. 09/24/2024: Weight: 238.5, BMI 46.6. SECA reviewed, [...] reviewed. Dictation completed with the use of [employer] voice recognition software, prone to medical misidentifications and grammatical errors. All errors are unintentional. Although the practitioner does try to identify and correct errors, some may be present. Please do not hesitate to contact the practitioner for clarification. Total time spent was 30 minutes with >50% on coordination of care and patient education. PLAN OF TREATMENT Pending Test Test Name Order Date CBC (COMPLETE BLOOD COUNT) WITH DIFF 11/2023 COMPREHENSIVE METABOLIC PANEL 07/07/2024 HEMOGLOBIN A1C 07/07/2024 LIPID PANEL 07/07/2024 TSH WITH REFLEX TO FT4 07/07/2024 Next Appt Details Provider Name:PRIYANKA GRIFFIN, 12/15/2024 01:45:00 PM, [address], [address], [place], [address], Provider Name:PRIYANKA GRIFFIN, 12/22/2024 01:45:00 PM, [address], [address], [place], [address], Provider Name:PRIYANKA GRIFFIN, 12/29/2024 01:45:00 PM, [address], [address], [place], [address], Provider Name:BRANNON Rodriguez, 01/05/2025 01:45:00 PM, [address], [address], [place], [address], Insurance Providers Payer Name Payer Address Payer Phone Subscriber Number Group Number Insured Name Patient Relationship to Insured Coverage Start Date Coverage End Date [employer] [place] [address] [id number] [place] [address] [id number] Lila Goncalves Self - patient is the insured 4 MEDICATIONS ADMINISTERED Medication Instructions Date of Administration Dosage Notes MICC B12 INJECTION 07/07/2024 Semaglutide 09/01/2024 0.25 mg Semaglutide 09/08/2024 0.25 mg Semaglutide 09/15/2024 0.25 mg Semaglutide 09/24/2024 0.25 mg L tricep SQ Semaglutide 10/07/2024 .5 mg Semaglutide 10/13/2024 0.5 mg Semaglutide 10/20/2024 0.5 mg Semaglutide 11/03/2024 .5 mg Semaglutide 11/10/2024 0.5 mg Semaglutide 11/17/2024 Semaglutide 11/24/2024 0.5 mg Semaglutide 12/08/2024 0.5 mg MEDICAL (GENERAL) HISTORY Medical History History ICD Code Morbid obesity E66.01 Mild intermittent asthma without complic ation J45.20 Seasonal allergies J30.2
--- OUTSIDE RECORDS SUMMARY | 2024-12-09 13:08 | XMS_ITS ---
Author Organization [facility] Address [address] [place] [address] Care Team Providers Care Model Home Sales Greeter Name Role Phone Светлана Abel Primary Care Provider BRANNON Vela Unavailable [phone] PRIYANKA GRIFFIN Unavailable [phone] REASON FOR VISIT pt here for sema injection; pt signed consent; 0.5mg administered subcutaneously into left arm; pt tolerated well and left in stable condition MEDICATIONS Medication SIG (Take, Route, Frequency, Duration) Notes Start Date End Date Status Semaglutide(0.25 or 0.5MG/DOS) 2 MG/3ML as directed Subcutaneous Active Encounters Encounter Location Date [facility] [address] [address] 11/24/2024 PRIYANKA GRIFFIN PLAN OF TREATMENT Next Appt Details Provider Name:PRIYANKA GRIFFIN, 12/15/2024 01:45:00 PM, [address], [address], Provider Name:PRIYANKA GRIFFIN, 12/22/2024 01:45:00 PM, [address] [facility], [facility] [address], [place], [address], Provider Name:PRIYANKA GRIFFIN, 12/29/2024 01:45:00 PM, 299 [facility] [address], [place], [address], Provider Name:BRANNON Rodriguez, 01/05/2025 01:45:00 PM, 299 [facility], [facility] [address], [place], [address], MEDICATIONS ADMINISTERED Medication Instructions Date of Administration Dosage Notes Semaglutide 11/24/2024 0.5 mg Progress Notes * Lila BOBDOB: [birth year] (29 yo F)Acc No.[id number]:11/24/2024 Patient:??Lila BOB Provider:??PRIYANKA GRIFFIN NP :1995?Age:29 Y?Sex:Fe male Date:11/24/2024 Address:[address] [place], [place] [id number] Pcp:Светлана Abel Subjective: * Chief Complaints: * ?1. Pt here for sema in jection; pt signed consent; 0.5mg administered subcutaneously into left arm; pt tolerated well and left in stable condition. * Medical History:?? * Medications:??Taking Semaglu tide(0.25 or 0.5MG/DOS) 2 MG/3ML Solution Pen- injector as directed Subcutaneous Objective: Assessment: Plan: * Treatment: * Therapeutic Injections:? Semaglutide : 0.5 mg (Route: Subcutaneous) given by Minna Nowak on left arm subcutaneous * Images: Billing Information: * Visit Code:?? * Procedure Codes:?? * Sign off status: Pending * Provider:??PRIYANKA GRIFFIN NP Date:??11/06
--- OUTSIDE RECORDS SUMMARY | 2024-12-09 13:09 | XMS_ITS ---
Author Organization [facility] Address [address] [place] [address] Care Team Providers Care Dairy Hand Name Role Phone Светлана Abel Primary Care Provider BRANNON Vela Unavailable [phone] PRIYANKA GRIFFIN Unavailable [phone] REASON FOR VISIT Patient is here for Nurse visit for Sema 0.5mg. Patient signed consent and left in stable condition MEDICATIONS Medication SIG (Take, Route, Frequency, Duration) Notes Start Date End Date Status Semaglutide(0.25 or 0.5MG/DOS) 2 MG/3ML as directed Subcutaneous Active Encounters Encounter Location Date Provider Diagnosis [address] [facility] [address] [address] 12/08/2024 PRIYANKA GRIFFIN PLAN OF TREATMENT Next Appt Details Provider Name:PRIYANKA GRIFFIN, 12/15/2024 01:45:00 PM, [address], [address], [address], Provider Name:PRIYANKA GRIFFIN, 12/22/2024 01:45:00 PM, [address], [facility] [address], [place], [address], Provider Name:PRIYANKA GRIFFIN, 12/29/2024 01:45:00 PM, [address] [facility] [address], [facility] [address], [place], [address], Provider Name:BRANNON Rodriguez, 01/05/2025 01:45:00 PM, [address], [facility] [address], [address], MEDICATIONS ADMINISTERED Medication Instructions Date of Administration Dosage Notes Semaglutide 12/08/2024 0.5 mg Progress Notes * iLla BOBDOB: [birth year] (29 yo F)Acc No.[id number]:12/08/2024 Patient:??Lila BOB Provider:??PRIYANKA GRIFFIN NP :1995?Age:29 Y?Sex:Fe male Date:12/08/2024 Address:[address] [place], [place] [id number] Pcp:Светлана Abel Subjective: * Chief Complaints: * ?1. Patient is here for Nurse visit for Sema 0.5mg. Patient signed consent and left in stable condition. * Medical History:?? * Medications:??Taking Semaglu tide(0.25 or 0.5MG/DOS) 2 MG/3ML Solution Pen- injector as directed Subcutaneous Objective: Assessment: Plan: * Treatment: * Therapeutic Injections:? Semaglutide : 0.5 mg (Route: Subcutaneous) given by UNIQUE ARMENDARIZ on left arm subcutaneous * Images: Billing Information: * Visit Code:?? * Procedure Codes:?? * Sign off status: Pending * Provider:??PRIYANKA GRIFFIN NP Date:??02/2025
== END 2024-12-09 11:41 | disposition home or self-care (01) ==
PROVIDERS: Visit Provider Nurse Practitioner Family
DX: J06.9 Acute upper respiratory infection, unspecified (principal)

== ENCOUNTER 2024-12-09 10:51 | Outpatient (REF) | payer OTHER, SELFPAY ==
[2024-12-09 16:15] LABS: Influenza A PCR NEGATIVE (Negative); Influenza B PCR POSITIVE (Negative); Resp Syncy Virus RNA Qual PCR NEGATIVE (Negative); SARS COV2 PCR INHOUSE NEGATIVE (Negative)
== END 2024-12-09 10:52 | disposition home or self-care (01) ==
LOC: HO.LAB 10:51
PROVIDERS: Visit Provider Nurse Practitioner Family
DX: J06.9 Acute upper respiratory infection, unspecified (principal)
CPT/HCPCS: 0241U